=== PATIENT | male | born 1995 | race Caucasian/White ===

== ENCOUNTER 2022-11-11 19:01 | Emergency (ER) | payer OTHER, SELFPAY ==
[2022-11-11 19:26] VITALS: BP 127/81; PULSE 92; RESP 16; TEMP 36.6; O2SAT 99; BMI 21.2
--- NOTE | 2022-11-11 22:42 | ED.WOUNDLAC ---
HPI - Wound/Laceration General Chief Complaint: Wound/Laceration Stated Complaint: lacertion left hand Time Seen by Provider: 11/11/22 21:50 Source: patient Mode of arrival: ambulatory Limitations: no limitations History of Present Illness HPI narrative: Patient is a 27-year-old [id number] male presenting to the emergency department with complaint of laceration to left index finger. Patient reports that he was holding a bag at work while attempting to open a bag with a knife when he accidentally cut his finger. He reports throbbing pain. He denies any numbness or tingling to his finger. He is unsure of last tetanus vaccine. Onset (ago): hour(s) Extremity Location: left: hand (palmar index finger) Place: work Context: accidental Associated symptoms: pain Treatments prior to arrival: bandage Related Data Allergies Allergy/AdvReac Type Severity Reaction Status Date / Time amoxicillin [AMOXICILLIN] Allergy Unknown RASH Unverified 11/13/19 18:13 Penicillins [PENICILLINS] Allergy Unknown UNK Unverified 11/13/19 18:13 Review of Systems Review of Systems: As per HPI. Yes all other systems are reviewed and are negative Constitutional: Constitutional: Reports as per HPI [facility] Social History Social History Alcohol intake: current Alcohol intake frequency: a few times a week Smoked in Last 30 Days: Yes Use of substances other than those prescribed or required for medical reasons: Yes Substance Use Type: Marijuana Advance Directives: No Advance Directives Information Provided: No Physical Exam Vital Signs: Vital Signs: Last Vital Signs Temp 98 F 11/11/22 19:26 Pulse 92 11/11/22 19:26 Resp 16 11/11/22 19:26 BP 127/81 11/11/22 19:26 Pulse Ox 99 11/11/22 19:26 O2 Del Method Room Air 11/11/22 19:26 BMI result Body Mass Index 21.2 Vital signs have been reviewed and appear to be correct. Blood pressure normal. Heart rate normal. Respiratory rate normal. Temperature normal. Oxygen saturation normal. Const: General: cooperative, healthy appearing and no acute distress Orientation/consciousness: oriented to person, oriented to place, oriented to time and patient oriented x3 Limitations: no limitations HEENT: Head: Yes normocephalic and Yes atraumatic Ears: external ears normal General nose exam: Normal external nose present Face and sinus: Yes face symmetric Mouth: oropharynx normal and moist mucous membranes Throat: Yes uvula midline Eyes: Pupils: Equal, round and reactive pupils present Neck: Neck: Yes normal visual inspection and Yes supple Resp: Effort & Inspection: normal respiratory effort and able to speak in complete sentences Auscultation: clear to auscultation bilaterally Cardio: Rate: regular rate Rhythm: regular rhythm Heart sounds: S1 normal heart sound present and S2 normal heart sound present GI: Palpation (GI): Soft to palpation and nontender Auscultation: normoactive bowel sounds : General: Yes no CVA tenderness Back/Spine/Pelvis: Back: no CVA tenderness Skin: General skin exam: elasticity normal and turgor normal Trauma: laceration left palmar 2nd finger L-shaped, flap, superficial, motor nerve function intact and sensation intact; no foreign bodies present and not contaminated Neuro: General: oriented to person, oriented to place, oriented to time, patient oriented x3, moves all extremities, no focal motor deficits and CN's II-XI intact bilaterally Cranial nerves: Yes Equal, round and reactive pupils present Cognition (Neuro): normal cognition Extrem: General: Yes full ROM, Yes no pedal edema and Yes no calf tenderness Psych: Mental Status: mental status grossly normal Affect: normal affect Thought process: Normal thought process present Medical Decision Making Medical Decision Making MDM Narrative: Patient is a 27-year-old [id number] male presenting to the emergency department with complaint of laceration to left index finger. On exam patient is awake, A+Ox3, VS WNL, afebrile, normal neurological exam without focal deficits, L-shaped flap to palmar surface of left distal index finger with mild bleeding. Given reported symptoms and physical exam findings, initial differential includes laceration. Tdap ordered. Laceration repaired as per procedure note. Patient had brief episode of nausea during procedure, medicated with ODT Zofran with improvement. Advised patient to keep dressing in place, clean, and dry for the next 24 hours and change dressing daily and assess wound for any signs of infection. Instructed patient to return for suture removal. Return precautions discussed at bedside. Patient verbalized understanding and agreement with plan. Differential Diagnosis Differential Diagnoses: The differential diagnosis associated with the presentation includes As per MDM. External Record Review External record reviewed: Inpatient record, Office record and Outpatient record Procedures Laceration Laceration 1: Site: hand Side (If applicable): left Size (cm): 1 Description: flap (L-shaped) Depth: simple, single layer Local Anesthetic: lidocaine 1% Amount of anesthesia used (mL): 2 Pre-repair: wound explored, irrigated extensively and deep structures intact Skin layer closed with: nylon Size (cm): 5-0 Number of sutures: 3 Technique: simple, interrupted Discharge Plan Discharge Clinical Impression: Laceration of finger of left hand Qualifiers: Encounter type: initial encounter Finger: index finger Damage to nail status: without damage Foreign body presence: without foreign body Qualified Code(s): S61.211A - Laceration without foreign body of left index finger without damage to nail, initial encounter Patient Disposition: Home, Self-Care Instructions: Care For Your Stitches (DC), Finger Laceration (ED) Additional Instructions: You have been evaluated in the emergency department today for a laceration to your finger. Your laceration was repaired in the emergency department with sutures. Please keep the area surrounding the laceration clean and dry and keep dressing in place for the next 24 hours. After that please change the dressing and assess the wound daily. Keep the area out of direct sunlight for the next 6 months to help prevent scarring. Do not submerge your hand in water until wound is fully healed. You should avoid any outdoor water such as streams, lakes, Ponds, etcetera until wound is fully healed. You should have the sutures removed in 10-14 days. If you develop fever, redness, swelling at the site of your laceration, or thick yellow drainage please come back to the ER for a wound check.
[2022-11-11] MEDS: Diphth,Pertus(ACell),Tet Adult 0.5 ML SYRINGE IM (23:07)
[2022-11-11] MEDS: Lidocaine HCl 1 % MPF 5 ML VIAL INFILTRATI (23:10)
[2022-11-11] MEDS: Ondansetron ODT 4 MG TAB.RAPDIS TRANSLINGU (23:10)
[2022-11-11 23:22] VITALS: BP 130/84; PULSE 97; RESP 16; O2SAT 98
== END 2022-11-11 23:24 | disposition home or self-care (01) ==
PROVIDERS: Emergency Provider Emergency Medicine Emergency Medical Services
DX: S61.211A Laceration without foreign body of left index finger without damage to nail, initial encounter (principal); X58.XXXA Exposure to other specified factors, initial encounter; Y93.89 Activity, other specified; Y92.89 Other specified places as the place of occurrence of the external cause; Y99.0 Civilian activity done for income or pay
CPT/HCPCS: 90471; 90715; 99284